=== PATIENT | female | born 1970 | race Hispanic/Latino ===

== ENCOUNTER → 2022-11-04 | Outpatient (CLI) | payer BC | END | disposition home or self-care (01) | LOC: RAH 12:19 | PROVIDERS: ATTEND Nurse Practitioner Family | DX: Z12.31 Encounter for screening mammogram for malignant neoplasm of breast (principal) | CPT/HCPCS: 77067 ==

== ENCOUNTER → 2024-02-09 | Outpatient (CLI) | payer BC | END | disposition home or self-care (01) | LOC: RAH 13:15 | PROVIDERS: ATTEND Obstetrics & Gynecology | DX: Z12.31 Encounter for screening mammogram for malignant neoplasm of breast (principal); R92.30 Dense breasts, unspecified | CPT/HCPCS: 77067 ==